=== PATIENT | male | born 1965 | race Caucasian/White ===

== ENCOUNTER 2023-02-17 19:53 | Emergency (ER) | payer OTHER ==
[~2023-02-17] VITALS: Ht 160 cm; Wt 72.7 kg
[2023-02-17 21:34] LABS: BASOPHILS % (AUTO) 1.1 % (0.0-2.0); EOSINOPHILS % (AUTO) 5.1 % (1.0-6.0); HEMATOCRIT 29.5 % (41-53); HEMOGLOBIN 9.9 g/dL (13.5-17.5); LYMPHOCYTES % (AUTO) 33.8 % (22.0-44.0); MEAN CORPUSCULAR HEMOGLOBIN 32.5 pg (26.0-34.0); MEAN CORPUSCULAR HGB CONC 33.5 G/dL (31.0-37.0); MEAN CORPUSCULAR VOLUME 97 fL (80-100); MONOCYTES # (AUTO) 0.6 K/uL (0.1-1.0); MONOCYTES % (AUTO) 9.7 % (2.0-9.0); NEUTROPHILS % (AUTO) 50.3 % (40.0-70.0); PLATELET COUNT (AUTO) 105 K/uL (150-450); RED BLOOD CELL COUNT(AUTO) 3.05 MIL/uL (4.50-5.90); RED CELL DISTRIBUTION WIDTH 15.9 % (11.5-14.5)
[2023-02-17 21:37] LABS: ANION GAP 15 mmol/L (8-16); CALCIUM, TOTAL 8.9 mg/dL (8.8-10.5); CARBON DIOXIDE 24 mmol/L (22-29); CHLORIDE 91 mmol/L (98-107); CREATININE 1.08 mg/dL (0.60-1.30); GLOMERULAR FILTR. RATE CALC > 60 mL/min (>60); GLUCOSE,RANDOM 96 mg/dL (70-110); POTASSIUM 3.2 mmol/L (3.5-5.1); SODIUM SERUM 130 mmol/L (136-145)
[2023-02-17 21:42] LABS: ALANINE AMINOTRANSFERASE 88 U/L (12-78); ALKALINE PHOSPHATASE 77 U/L (46-116); ASPARTATE AMINOTRANSFERASE 157 U/L (15-37); BILIRUBIN,TOTAL 0.8 mg/dL (0.1-1.0); LIPASE 208 U/L (73-393); TOTAL PROTEIN, SERUM 8.1 g/dL (6.4-8.2)
[2023-02-17] MEDS ORDERED: BARIUM SULFATE 0.1% SUSPENSION 450 ML BOTTLE PO ONE (23:45)
[2023-02-18 00:52] LABS: APPEARANCE,URINE CLEAR (CLEAR); BILIRUBIN,URINE NEGATIVE (NEGATIVE); GLUCOSE, URINE (UA) NEGATIVE (NEGATIVE); KETONES,URINE NEGATIVE (NEGATIVE); LEUKOCYTE ESTERASE ,URINE NEGATIVE (NEGATIVE); NITRATE,URINE NEGATIVE (NEGATIVE); OCCULT BLOOD,URINE NEGATIVE (NEGATIVE); PH,URINE 5.5 (5.0-8.0); PROTEIN,URINE NEGATIVE (NEGATIVE); SPECIFIC GRAVITIY, URINE 1.006 (1.003-1.030)
[2023-02-18 01:43] VITALS: TEMP 98.4
[2023-02-18] MEDS ORDERED: BACITRACIN 0.9 GM PACKET OINTMENT TP ONE (03:15)
[2023-02-18 04:33] VITALS: BP 132/77; PULSE 92; RESP 16
[2023-02-18] MEDS ORDERED: MAG30ORA11 PO (05:23)
[2023-02-18] MEDS ORDERED: OMEP20 PO (05:23)
== END 2023-02-18 05:39 | disposition home or self-care (01) ==
LOC: EMS 19:54
DX: K29.20 Alcoholic gastritis without bleeding (principal); F10.10 Alcohol abuse, uncomplicated; K70.30 Alcoholic cirrhosis of liver without ascites; K76.0 Fatty (change of) liver, not elsewhere classified; E87.6 Hypokalemia; D53.9 Nutritional anemia, unspecified
CPT/HCPCS: 99285; 71045; 80053; 81003; 83690; 84484; 85025; 36415; 93005; 74176; Q9967